=== PATIENT | male | born 1955 | race Two or more races ===

== ENCOUNTER → 2024-06-03 | Outpatient (CLI) | payer OTHER, MEDICAID, SELFPAY ==
--- NOTE | 2024-06-03 09:12 | XR_ITS ---
Examination: Bilateral fifth digits 6 views TECHNIQUE: AP oblique lateral right and left fifth digits 6 views Exam date and time: June 03, 2024 0927 hours INDICATIONS: Fifth digit pain bilaterally beginning one week ago. 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
== END | disposition home or self-care (01) ==
PROVIDERS: PCP Nurse Practitioner Family; Referring Provider Nurse Practitioner Family; Visit Provider Nurse Practitioner Family
DX: M19.042 Primary osteoarthritis, left hand (principal); M19.041 Primary osteoarthritis, right hand
CPT/HCPCS: 73140

== ENCOUNTER → 2024-07-14 | Outpatient (CLI) | payer OTHER, MEDICAID, SELFPAY ==
--- NOTE | 2024-07-14 09:30 | XR_ITS ---
Examination: Abdominal aortic sonogram Exam date and time: July 14, 2024 Indication 20 1:00 AM Technique: Multiple sonographic images abdominal aorta Indications: Smoking history 50 years Findings: Transverse dimension proximal aorta 2.0 cm, mid aorta 1.7 cm, distal aorta 1.3 cm, right iliac 0.8 cm, left iliac 0.8 cm Impression: Negative for abdominal aortic aneurysm
== END | disposition home or self-care (01) ==
PROVIDERS: PCP Nurse Practitioner Family; Referring Provider Nurse Practitioner Family; Visit Provider Nurse Practitioner Family
DX: Z13.6 Encounter for screening for cardiovascular disorders (principal)
CPT/HCPCS: 76706

== ENCOUNTER → 2024-09-14 | Outpatient (CLI) | payer OTHER, MEDICAID, SELFPAY ==
--- NOTE | 2024-09-14 17:00 | XR_ITS ---
Examination: CT chest, without intravenous contrast. Sagittal and coronal 2-D reconstructions. Exam date and time: September 14, 2024 1718 hours INDICATIONS: Smoking history 58 years, 17 mm pulmonary nodule left upper lobe on CT chest study July 13, 2023 CTDI:vol (mGy) 8.22 DLP: (mGycm) 304 Technique: Multiple 3.0 mm axial sections of the chest to been obtained. Bone and lung density settings are obtained. Sagittal and coronal 2-D reconstructions have been obtained. Low dose protocols were performed. One or more of the following dose reduction techniques were used; automated exposure control, adjustment of the mA and/or KV according to patient size, use of iterative reconstruction technique. Findings: Thoracic aortic calcification with no aneurysmal dilatation Pulmonary artery segments are not enlarged Mild enlargement left atrium No paratracheal tracheobronchial or bronchopulmonary adenopathy Severe COPD pattern with multiple areas of air space destruction Stable 17 mm pulmonary nodule left upper lobe New 12 mm pulmonary nodule left lower lobe Blebs in both lungs, the largest in the right lower lobe measuring 3.5 cm No visualized liver or splenic lesion Contracted gallbladder No pancreatic mass No hydronephrosis IMPRESSION: COPD Stable 17 mm pulmonary nodule left upper lobe New 12 mm pulmonary nodule left lower lobe, recommend continued 6 month follow-up CT chest without contrast
== END | disposition home or self-care (01) ==
LOC: CCTX 16:55
PROVIDERS: PCP Nurse Practitioner Family; Referring Provider Nurse Practitioner Family; Visit Provider Nurse Practitioner Family
DX: Z12.2 Encounter for screening for malignant neoplasm of respiratory organs (principal); R91.8 Other nonspecific abnormal finding of lung field; J44.9 Chronic obstructive pulmonary disease, unspecified
CPT/HCPCS: 71271